=== PATIENT | female | born 1970 | race Caucasian/White ===

== ENCOUNTER 2024-01-25 15:35 | Emergency (ER) | payer OTHER, SELFPAY ==
[2024-01-25 15:40] VITALS: BP 125/78
[2024-01-25 16:02] LABS: % Basophils 0.4 % (0-2); % Eosinophils 0.6 % (0-6); % Immature Granulocytes 0.2 % (0-0.5); % Lymphocytes 33.2 % (20.5-51.1); % Monocytes 5.6 % (1.7-9.3); Absolute Lymphocytes 1.6 10^3/uL (1.2-3.4); Absolute Monocytes 0.3 10^3/uL (0.1-0.6); Absolute Neutrophils 2.9 10^3/uL (1.4-6.5); Hematocrit 39.2 % (37.0-47.0); Hemoglobin 13.9 g/dL (12.0-16.0); Mean Corp Hgb Conc. 35.5 g/dL (33.0-37.0); Mean Corpuscular Hgb 31.8 pg (27.0-31.0); Mean Corpuscular Volume 89.7 fL (81.0-99.0); Mean Platelet Volume 9.6 fL (7.4-10.4); Nucleated Red Blood Cells % 0 %; Platelet Count 241 10^3/uL (130-400); Red Blood Cell Count 4.37 10^6/uL (4.20-5.40); Red Cell Dist. Width 11.9 % (11.5-14.5); White Blood Cell Count 4.8 10^3/uL (4.8-10.8)
[2024-01-25 16:18] LABS: ALT (SGPT) 11 U/L (0-35); AST (SGOT) 24 U/L (14-36); Albumin 4.6 g/dl (3.5-5.0); Alkaline Phosphatase 61 U/L (38-126); Blood Urea Nitrogen 9 mg/dl (7-17); Calcium 9.4 mg/dl (8.4-10.2); Carbon Dioxide 25 mmol/L (22-30); Chloride 106 mmol/L (98-107); Glucose 104 mg/dl (70-99); Sodium 141 mmol/L (135-145); Total Bilirubin 0.7 mg/dl (0.2-1.3); Total Protein 6.8 g/dl (6.3-8.2); eGFR > 60.00
[2024-01-25 16:30] LABS: Troponin I < 0.012 ng/ml
--- NOTE | 2024-01-25 18:34 | ED.GENMED ---
History of Present Illness
General
Chief Complaint: Chest Pain
Source: patient
Time Seen by Provider: 01/25/24 17:56
History of Present Illness
History of Present Illness:
53yoF with a history of Celiac disease presenting with her for evaluation of palpitations. Patient had two cups of coffee this morning. She was on the toilet having a bowel movement around 7am this morning when she had an abrupt onset of
palpitations. She states it felt like her heart was beating out of her chest. She decided to go to the gym for her normal work out. While exercising, her palpitations continued and it started to feel like her whole body was shaking. She reports
lightheadedness but denies syncope. She was seen at urgent care prior to arrival. EKG showed NSR with a single PAC and she was sent to the ED for evaluation. Patient reports similar symptoms in the past but the episode today was the most severe.
Phy Exam
General Physical Exam
General Presentation: well appearing
General age: appears stated age
General Skin: warm and dry
General Habitus: normal
General Mental: alert
Cardiovascular Exam
Cardiovascular Exam: regular rate/rhythm, no edema and no murmur
Pulmonary Exam
Pulmonary Exam: lungs clear, no respiratory distress, no crackles and no wheezing
Skin Exam
Skin Exam: normal color and warm/dry
Psychiatric Exam
Psychiatric Exam: normal mood/affect
Scores
Heart Score for Chest Pain Patients
STEMI patient?: Not applicable
Course
Orders/Labs/Results
Orders:
Orders
01/25/24 15:49
Electrocardiogram (*1) Urgent
Reason for Study: Palpitations
01/25/24 15:50
EKG- Treatment ONCE
01/25/24 15:55
CMP [Comprehensive Metabolic Panel] Urgent
Complete Blood Count/With Diff Urgent
Troponin I Urgent
01/25/24 18:32
Cardiac Monitoring- Treatment ONCE
01/25/24 18:33
Electrocardiogram (*1) Urgent
Reason for Study: Palpitations
EKG- Treatment ONCE
CR Chest - 2 Views Urgent
Comment:
Reason For Exam: CP
01/25/24 18:54
Troponin I Urgent
Abnormal Lab Results
01/25/24
15:55
MCH 31.8 H pg
(27.0-31.0)
Glucose 104 H mg/dl
(70-99)
01/25/24 15:55
01/25/24 15:55
Vital Signs
Initial and Last Documented VS:
Initial Vital Signs
Temp Pulse Resp BP Pulse Ox
98.7 F 67 18 125/78 100
01/25/24 15:40 01/25/24 15:40 01/25/24 15:40 01/25/24 15:40 01/25/24 15:40
Last Documented Vital Signs
Temp Pulse Resp BP Pulse Ox
98.7 F 69 14 108/67 99
01/25/24 15:40 01/25/24 19:00 01/25/24 19:00 01/25/24 19:00 01/25/24 18:45
MDM/Problems Addressed
Differential Diagnosis Includes:
53yoF here with palpitations that began this morning. Anthony like heart was beating out of chest. Associated with shaking. Similar episodes in the past. EKG at urgent care showed NSR with a single PAC. She is afebrile and hemodynamically stable. She
is well appearing in no distress. Exam is reassuring. Differential diagnosis includes but is not limited to: arrhythmia, ACS, electrolyte abnormality
Initial ED plan: Cardiac labs and EKG obtained in triage. EKG shows NSR without ectopy or ischemic changes. Troponin WNL. Will place on cardiac cath lab manager and check delta troponin/EKG and CXR.
*EKG
Interpreted by ED Provider?: Yes
EKG Intrepretation Date: 01/25/24
Heart Rate: 75
Rate: normal
Rhythm: sinus
[place]: normal axis
Interval: normal interval
QRS Pattern: normal QRS
Ischemia: no ischemia
*Critical Care Note
Total Time (30-74mins, 75-104mins- exclusive of procedures): Not Applicable
Update Note
Update Note:
Repeat troponin/EKG unchanged. CXR is clear. No telemetry events during ED stay. She is stable for discharge. Advised f/u with PCP and cardiology. ED return precautions discussed. She expressed understanding and is agreeable to plan. Patient
discharged in stable condition.
ED Attending Note
-
Portions of this chart may have been created with voice recognition software.� Occasional wrong word or��sound alike� substitutions may have occurred due to the inherent limitations of voice recognition software.
Discharge Plan
Departure
Patient Disposition: Home (Routine Discharge)
Date of Disposition: 01/25/24
Time of Disposition: 20:07
Patient with high blood pressure during this ER visit?: No
Discharge Problem:
Palpitations
Instructions: Chest Pain CBC Follow Up
Referrals:
Jack Fish MD [Family Provider] -
Fuad Vernon MD [Active] -
Activity Restrictions/Additional Instructions:
Please follow-up with your family doctor and cardiology. Return to the ER with any new or worsening symptoms.
Interventions
Interventions:
*Risk Screen - Suicide Last Done: 01/25/24 18:20
*General Assessment Last Done: 01/25/24 18:20
*Neglect/Abuse Screening Last Done: 01/25/24 18:20
ED- Fall Risk Assessment Last Done: 01/25/24 20:16
*Nursing Disposition Last Done: 01/25/24 20:16
ED- Cardiac Assessment Last Done: 01/25/24 18:20
Discharge Date and Time
Discharge Date/Time: 01/25/24 20:16
Print Language: BURKINAN
[2024-01-25 19:00] VITALS: BP 108/67
[2024-01-25 19:26] LABS: Troponin I < 0.012 ng/ml
== END 2024-01-25 20:16 | disposition home or self-care (01) ==
LOC: EMR 15:35
PROVIDERS: Emergency Medicine; Physician Assistant; EMERGENCY PHYSICIAN Student in an Organized Health Care Education/Training Program; FAMILY PHYSICIAN Family Medicine
DX: R00.2 Palpitations (principal)
CPT/HCPCS: 99285; 71046; 80053; 84484; 85025; 93005

== ENCOUNTER → 2024-02-03 10:04 | Outpatient (REF) | payer OTHER, SELFPAY | LOC: RCS 10:04 | PROVIDERS: ATTENDING PHYSICIAN Student in an Organized Health Care Education/Training Program; FAMILY PHYSICIAN Family Medicine | DX: R00.2 Palpitations (principal) | CPT/HCPCS: 93306 ==